=== PATIENT | female | born 1940 | race Caucasian/White ===

== ENCOUNTER → 2018-01-28 | Outpatient (CLI) | payer OTHER ==
--- NOTE | 2018-01-29 07:50 | MAMMOGRAPHY REPORT ---
BILATERAL DIGITAL SCREENING MAMMOGRAM TOMOSYNTHESIS WITH CAD: 01/28/2018 CLINICAL HISTORY: Routine screening. Patient has no complaints. TECHNIQUE: Breast tomosynthesis in addition to standard 2D mammography was performed. Current study was also evaluated with a Computer Aided Detection (CAD) system. COMPARISON: Comparison is made to exams dated: 03/15/2016 mammogram, 03/14/2015 mammogram, 03/11/2014 [facility] m[facility], 03/10/2013 mammogram, 03/06/2012 mammogram, and 03/09/2011 mammogram - [facility]. BREAST COMPOSITION: There are scattered areas of fibroglandular density in both breasts. FINDINGS: There is a newly visualized a 5 mm circumscribed mass in the upper outer middle one third of the right breast, for which additional targeted ultrasound is recommended, although this could rep resent a cyst. A newly visualized focal asymmetry measuring approximately 6 mm in the upper outer mi ddle one third of the left breast is also seen, warranting additional spot compression tomosynthesis views and possibly ultrasound. There is a stable ribbon-shaped biopsy marker clip in the retroareolar right breast. No other suspic ious mass, architectural distortion or cluster of microcalcifications is seen. IMPRESSION: ACR BI-RADS CATEGORY 0: INCOMPLETE EVALUATION: NEED ADDITIONAL IMAGING EVALUATION The newly visualized 5 mm circumscribed mass in the upper outer quadrant of the right breast, and 6 m m focal asymmetry in the upper outer left breast need additional imaging evaluation. The patient will be called to schedule an appointment. Approximately 10% of breast cancers are not detected with mammography. A negative mammographic report should not delay biopsy if a clinically suggestive mass is present. Dee Ckoer M.D. ay/:01/28/2018 12:32:33 Compositor Apprentice: Moira GREENWOOD(R)(M)(BD), [facility] letter sent: Addl Imaging 0 BI-RADS Code: ACR BI-RADS Category 0: Incomplete Evaluation: Need Additional Imaging Evaluation
== END | disposition home or self-care (01) ==
LOC: C.MAMM 09:59
PROVIDERS: ATTEND Family Medicine
DX: Z12.31 Encounter for screening mammogram for malignant neoplasm of breast (principal); N63.11 Unspecified lump in the right breast, upper outer quadrant; N64.89 Other specified disorders of breast

== ENCOUNTER → 2018-02-06 | Outpatient (CLI) | payer OTHER ==
--- NOTE | 2018-02-06 14:44 | MAMMOGRAPHY REPORT ---
UNILATERAL LEFT DIGITAL DIAGNOSTIC MAMMOGRAM TOMOSYNTHESIS AND TARGETED BILATERAL ULTRASOUND: 02/07/20 18 CLINICAL HISTORY: Callback from screening mammogram for right breast mass and left breast asymmetry. TECHNIQUE: Breast tomosynthesis in addition to standard 2D mammography was performed. Left CC and M LO spot compression 2D and tomosynthesis images were obtained. COMPARISON: Comparison is made to exams dated: 01/28/2018 mammogram, 03/15/2016 mammogram, 03/14/2015 [facility] mogram, 03/11/2014 mammogram, 03/10/2013 mammogram, and 03/06/2012 mammogram - [facility]. BREAST COMPOSITION: There are scattered areas of fibroglandular density in the left breast. FINDINGS: Spot compression views of the left breast demonstrate partial effacement of a focal asymmet ry in the left lateral breast at approximately 3:00. Targeted ultrasound was performed of the left 3: 00 breast in the region of the focal asymmetry. In the left breast at 3:00, 4 cm from the nipple, th ere is a circumscribed anechoic 4 x 3 mm mass. This is felt to correspond with the mammographic asym metry and is compatible with a benign cyst. No suspicious masses were evident in this region. Targeted ultrasound was performed of the right upper outer quadrant in the region of a circumscribed mass seen on the screening mammogram. In the right breast at 11:00, 4 cm from the nipple, there is a round circumscribed anechoic mass which measures 4 x 4 x 3 mm. This corresponds with the mammograph ic mass and is consistent with a benign simple cyst. IMPRESSION: ACR BI-RADS CATEGORY 2: BENIGN, TARGETED ULTRASOUND ACR BI-RADS CATEGORY 2: BENIGN 1. Benign 4 mm simple cyst in the right breast at 11:00 on ultrasound, which corresponds with a new mammographic mass. 2. Partial effacement of the focal asymmetry in the left 3:00 breast on the additional views. A jacey ign cyst is seen in the left 3:00 breast on ultrasound which is felt to correspond with the asymmetry . There is no mammographic or targeted sonographic evidence of malignancy. A 1 year screening mammogram is recommended. The patient has been verbally notified of the results. Approximately 10% of breast cancers are not detected with mammography. A negative mammographic report should not delay biopsy if a clinically suggestive mass is present. Gayatri Hernandez M.D. ah/:02/06/2018 10:35:03 Home Organizer: Michelle CANNON)([place]), [facility] letter sent: Normal 1/2 BI-RADS Code: ACR BI-RADS Category 2: Benign Ultrasound BI-RADS: ACR BI-RADS Category 2: Benign
== END | disposition home or self-care (01) ==
LOC: C.MAMM 09:56
PROVIDERS: ATTEND Family Medicine
DX: N60.01 Solitary cyst of right breast (principal); N64.89 Other specified disorders of breast